=== PATIENT | female | born 1955 | race Caucasian/White ===

== ENCOUNTER 2018-01-15 17:19 | Emergency (ER) | payer OTHER ==
[~2018-01-15] VITALS: Ht 152.4 cm; Wt 68.0 kg
--- NOTE | 2018-01-15 18:27 | ED GENERAL ADULT ---
History of Present Illness General Chief Complaint: General Adult Stated Complaint: DRAIN DISLOCATED IN R BREAST S/P REDUCTION Source: patient Exam Limitations: no limitations Vital Signs & Intake/Output Vital Signs & Intake/Output Vital Signs Date Time Temp Pulse Resp B/P B/P Pulse O2 O2 Flow FiO2 Mean Ox Delivery Rate 01/15 1930 98.2 74 16 124/76 99 Room Air 01/15 1831 Room Air 01/15 1738 98.9 71 18 122/77 97 Room Air Allergies Coded Allergies: Penicillins (Severe, ANAPHYLAXIS 01/15/18) Triage Note: 62F HAD BREAST SX TO RIGHT BREAST YESTERDAY FOR REDUCTION DUE TO LEFT BREAST CA HX - RECONSTRUCTION. SURGERY DONE BY DR SHALONDA GRANT. STATES IT WAS BARELY DRAINING YESTERDAY, AND SHE SAW THE DRAIN FALL OUT TODAY. REPORTS MILD SORENESS TO THE AREA. DENIES F/C. Triage Nurses Notes Reviewed? yes Onset: Abrupt Duration: hour(s): Timing: single episode today HPI: 62-year-old female with a history of left breast cancer and hypothyroid, status post right breast reduction yesterday presenting with spontaneous surgical drain displacement 6 hours ago. Patient presents to the emergency department because she is not sure if the drain is okay to be left out, or if it needs to be replaced. Reports that prior to displacement the drain had only drained a scant amount of fluid last night and a scant amount this morning. Denies fevers or purulent drainage. Reports her postop pain has been well controlled and has not required any pain medications. (Mira Glass) Past History Travel History Traveled to [place] past 21 day No Medical History Any Pertinent Medical History? see below for history Neurological: NONE EENT: NONE Cardiovascular: MITRAL VALVE PROLAPSE Respiratory: NONE Gastrointestinal: NONE Hepatic: NONE Renal: NONE Musculoskeletal: NONE Psychiatric: NONE Endocrine: hypothyroidism Cancer(s): LEFT BREAST CA Surgical History Surgical History: non-contributory Psychosocial History What is your primary language Japanese Tobacco Use: Never used Family History Hx Contributory? No (Mira Glass) Review of Systems Review of Systems Constitutional: Reports: no symptoms. EENTM: Reports: no symptoms. Respiratory: Reports: no symptoms. Cardiovascular: Reports: no symptoms. GI: Reports: no symptoms. Genitourinary: Reports: no symptoms. Musculoskeletal: Reports: no symptoms. Skin: Reports: no symptoms. Neurological/Psychological: Reports: no symptoms. Hematologic/Endocrine: Reports: no symptoms. Immunologic/Allergic: Reports: no symptoms. (Mira Glass) Physical Exam Physical Exam General Appearance: well developed/nourished, no apparent distress, alert, awake , comfortable Head: atraumatic, normal appearance Eyes: Bilateral: normal appearance. Neck: normal inspection Respiratory: normal breath sounds, lungs clear Cardiovascular: regular rate/rhythm, normal peripheral pulses Gastrointestinal: soft, non-tender Back: normal inspection Extremities: normal inspection Neurologic/Psych: awake, alert, oriented x 3, normal gait, normal mood/affect Skin: normal color, warm/dry Comments: Surgical dressing in place and not removed as patient was instructed to not remove until her follow-up appointment on Thursday. Core Measures ACS in differential dx? No CVA/TIA Diagnosis: No Sepsis Present: No Sepsis Focused Exam Completed? No (Mira Glass) Progress Differential Diagnoses I considered the following diagnoses in my evaluation of the patient: [Surgical drain displacement, low concern for postop infection] Plan of Care: Attempted to reach patient's surgical provider, or on-call provider, without success. Patient requesting to be discharged home. Discussed with ED attending and patient is safe for discharge home without waiting for surgeon to return call. Patient counseled on strict return precautions and will follow-up for her postop visit as scheduled. Initial ED EKG: none (Mira Glass) Departure Departure Disposition: HOME OR SELF CARE Condition: Stable Clinical Impression Primary Impression: Visit for wound check Referrals: Bita QUAN,Cooper Collazo (PCP/Family) Additional Instructions: Follow-up with your surgeon for reevaluation. Return to the emergency department for any new or worsening symptoms. Departure Forms: Customer Survey General Discharge Information (Mira Glass) PA/SENIOR MANUFACTURING TEST ENGINEER Co-Sign Statement Statement: ED Attending supervision documentation- [] I saw and evaluated the patient. I have also reviewed all the pertinent lab results and diagnostic results. I agree with the findings and the plan of care as documented in the PA's/SENIOR MANUFACTURING TEST ENGINEER's documentation. [x] I have reviewed the ED Record and agree with the PA's/SENIOR MANUFACTURING TEST ENGINEER's documentation. [] Additions or exceptions (if any) to the PAs/SENIOR MANUFACTURING TEST ENGINEER's note and plan are summarized below: [] (Nasima QUAN,Kraig Webb) Critical Care Note Critical Care Note Critical Care Time: non-applicable (Carin MIGUEL,Mira)
[2018-01-15 19:30] VITALS: BP 124/76
== END 2018-01-15 20:21 ==
LOC: ERH 17:19
DX: Z48.00 Encounter for change or removal of nonsurgical wound dressing (principal)